=== PATIENT | male | born 1990 | race Caucasian/White ===

== ENCOUNTER → 2022-02-17 11:12 | Outpatient (REF) | payer BC, SELFPAY | LOC: ANHLAB 11:12 | PROVIDERS: PCP Family Medicine; Visit Provider Surgery Plastic and Reconstructive Surgery | DX: R22.9 Localized swelling, mass and lump, unspecified (principal) | CPT/HCPCS: 88304 ==

== ENCOUNTER 2023-03-27 10:32 | Outpatient (CLI) | payer BC, SELFPAY ==
--- NOTE | ~2023-03-27 | MR_ITS ---
MRI of the right knee Clinical history: Pain Technique: Coronal proton density and proton density-weighted images, sagittal proton-density and T2 fat-sat images, and axial proton-density fat-saturated images were acquired. Findings: Anterior and posterior cruciate ligaments are intact. Medial collateral ligament and the la teral collateral ligament complex are intact. Popliteus tendon is intact. There is a bucket-handle tear of the medial meniscus, with flipped bucket-handle fragment into the in tercondylar notch. No lateral meniscal tear evident. There is amorphous marrow edema throughout the medial tibial plateau region, likely reactive in natur e. No definite subchondral insufficiency fracture identified. Articular cartilage is well preserved i n the medial lateral compartments, and along the femoral trochlea. There is grade 4 chondral fissure along the medial patellar facet. Extensor mechanism is intact. Small joint effusion present. No Alfredo's cyst. Impression: Bucket-handle tear of the medial meniscus, as detailed above. Extensive marrow edema in the medial tibial plateau is likely reactive, or possibly bone contusion. N o definite subchondral insufficiency fracture seen. Grade 4 chondral fissure at the medial patellar facet. Reviewed, dictated and finalized at location . Impression: Bucket-handle tear of the medial meniscus, as detailed above. Extensive marrow edema in the medial tibial plateau is likely reactive, or poss ibly bone contusion. No definite subchondral insufficiency fracture seen. Grade 4 chondral fissure at the medial patellar facet.
== END 2023-03-27 10:33 | disposition home or self-care (01) ==
PROVIDERS: PCP Family Medicine; Visit Provider Orthopaedic Surgery
DX: S83.211A Bucket-handle tear of medial meniscus, current injury, right knee, initial encounter (principal); X58.XXXA Exposure to other specified factors, initial encounter
CPT/HCPCS: 73721

== ENCOUNTER 2023-05-22 02:08 | Day surgery (SDC) | payer BC, SELFPAY ==
[2023-05-11 12:12] VITALS: BMI 30.7
--- NOTE | 2023-05-11 12:16 | PC.NURSE ---
Addendum entered by Kezia Coley RN 05/11/23 12:26: NO NICOTINE POUCH MORNING OF SURGERY. Original Note: Report to the Outpatient Waiting Room, entrance under the green pavilion located off [facility], at time 7:30 on date 05/22/23. Planned Procedure Time: 9:30. Time changes happen often and if your time is changed the preop area will call you the afternoon before. - You and your visitor will be asked to self-screen and do not enter if you have any COVID symptoms. - A mask is optional within the hospital at this time. Patients may have clear liquids (water, carbonated beverages, clear teas, apple juice) until 3 hours prior to surgery (6:30) with a maximum of 20 ounces. - No food from midnight until time of surgery Take the following medications with a SIP of water the morning of surgery: NONE DO NOT STOP ANY OF YOUR OTHER PRESCRIPTION MEDICATIONS PRIOR TO SURGERY ?EXCEPT THE FOLLOWING Medications to discontinue per physician: N/A Date to take last dose: N/A Please no make-up, nail luxembourgish, hairspray, perfume, deodorant, or body powder the day of surgery. No jewelry (including any body piercings) or valuables the day of surgery, leave them at home. Please take a shower or bath the night before, or the morning of, surgery with an antibacterial soap. Wear comfortable, loose fitting clothing. - Jewelry must be removed prior to entering the operating room. Rings and piercings that are not removed may be cut off. - The hospital will not accept responsibility for valuables. - Please leave all valuables, including medications, at home the day of surgery. If you are going home after surgery, a licensed cart driver must drive you home. - NO public transportation without another adult if you receive anesthesia. - We recommend that an adult stay with you for 24 hours following discharge. - We also recommend that you do not drive, make important decision, drink alcoholic beverages, or take any drugs that were not prescribed by your health care provider for at least 24 hours after your discharge time. Follow any additional instructions given to you from your surgeon. If you or anyone in your household have experienced Covid symptoms in the past week, please notify your surgeon or the nurse liaison at the phone number below for possible testing. Telephone instructions given to PT - JAQUAN MARTINES and asked if any additional questions and then verbalized understanding. Patient advised to call surgeon office or pre surgery nurse liaison [phone] if any additional questions.
--- NOTE | 2023-05-12 08:41 | PC.NURSE ---
CRUTCH TRAINING COMPLETED. PT VERBALLY & PHYSICALLY DEMONSTRATES UNDERSTANDING. WRITTEN INSTRUCTIONS GIVEN.
[2023-05-22] VITALS (11 sets, daily range): BP systolic 94–149; BP diastolic 55–88; PULSE 43–81; RESP 12–20; TEMP 36.2–36.3; O2SAT 98–100
--- NOTE | 2023-05-22 08:16 | P.PNAN_ITS ---
Anes - Initial Pre Proc Eval Procedure: Operation Date: 05/22/23 09:30 Proposed Procedures p Right Knee Arthroscopy with Meniscectomy - Phi Marti MD Date/Time: 05/22/23 08:16 Surgeon: Phi Marti MD Pre Op Diagnosis: right knee medial meniscal tear Patient Data Age: 33 Gender: M Height: 1.93 m Weight: 114.75 kg Allergies Allergy/AdvReac Type Severity Reaction Status Date / Time No Known Allergies Allergy Verified 05/17/23 15:00 Home Medications Medication Instructions Recorded Confirmed Type cetirizine 10 mg tablet (Zyrtec) 10 mg PO DAILY PRN allergy 01/22/21 05/17/23 Rx symptoms #90 tabs omeprazole 20 mg capsule,delayed See Rx Instructions .Route 01/24/23 05/17/23 Rx release .COMPLEX #90 caps Patient hx anesthesia problems: none Family hx anesthesia problems: none Results Review: All pre-operative results and documents have been reviewed as part of the pre- operative evaluation. [facility] Past Medical History Medical History BMI 32.0-32.9,adult BMI 33.0-33.9,adult Dietary counseling and surveillance (05/29/19) Heart burn Screening for lipid disorders Skin lesion of back Tear of medial meniscus of right knee Surgical History Surgical History No history of previous surgery Family History Family History Father Hypertension Mother No problems noted. Sibling No problems noted. Grandparent Cancer Diabetes mellitus Other Melanoma Social History Social History Smoking status: Never smoker Tobacco type: smokeless tobacco Smokeless tobacco user: snus Second hand tobacco smoke exposure: Yes Additional smoking assessment comments: USES NICOTINE POUCH Alcohol intake: current Drinks per week: 6 Substance use: never Substance use type: does not use Lack of Transportation: No Lack of Food: Never True Current Housing: I Have Housing Concerned About Future Housing: No Difficulty Paying Gas/Electric Bills: No Difficulty Paying for Meds: No Currently Unemployed: YES Education: High School Diploma/GED Difficulty w/ Childcare or Family Care: No Living arrangements: with family Occupation/Education: occupation 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 Informed Consent: The patient's anesthetic plan and its attendant risks and benefits were dis cussed with the patient/family/POA. Questions were solicited and answers provided to the satisfaction of the patient/family/POA.
[2023-05-22] MEDS: LACTATED RINGERS 1,000 ML 30 ML IV CONT ×2 (08:20→10:35)
[2023-05-22] MEDS: KETOROLAC 15 MG/ML VIAL (*BKC) IV PUSH (08:20)
[2023-05-22] MEDS: ACETAMINOPHEN 500 MG TABLET 1000 MG PO (08:20)
--- NOTE | 2023-05-22 08:33 | WPDHPUPDATE1 ---
History and Physical Update Update Date/Time: 05/22/23 08:33 History and Physical has been reviewed, including an updated exam of the patient. There are NO changes in the patient's condition. Risks, benefits, and alternatives have been discussed and questions answered. Patient agrees to proceed with procedure.
[2023-05-22] MEDS: ceFAZolin 2 GM/D5W 50 ML 2 GM/50 ML BAG IVPB (09:04)
[2023-05-22] MEDS: LIDOCAINE HCL 1% LOCAL INJ 10 ML VIAL 20 ML INFILTRATE (09:24)
--- NOTE | 2023-05-22 10:40 | P.OP_ITS ---
Procedure Note - Detailed Date of Procedure 05/22/23 Pre-op Diagnosis right knee medial meniscal tear; symptomatic focal synovitis Post-op Diagnosis Same Procedure Performed Right knee arthroscopy. Partial medial meniscectomy. Partial synovectomy. Surgeon Phi Marti MD Resort Desk Clerk Jason Cardoso Anesthesia General Description of Procedure The patient was identified and proper site identified and he was taken to the operating room, transferred to the OR table placing him supine taking care to pad the torso and extremities. After general anesthetic induction and intubation, a nonsterile tourniquet was placed high on the right thigh but was not inflated. The right lower extremity was positioned, prepped and draped in usual sterile fashion. 10 cc of 1% lidocaine was injected into the subcutaneous tissue in the area of the portals at start of the procedure, and an additional 1 0 at the end. The portals were established and the arthroscopy was carried out. There was cartilage debris within the knee. This was flushed out. Articular cartilage anteriorly laterally was in good shape. Lateral meniscus was intact. Medial meniscus was displaced into the notch and although it was reducible it was grossly unstable. The pseudo meniscus had already formed at the base of the original meniscal tear. The medial meniscus was resected at the posterior and anterior horn and then removed through an accessory anterior portal. The meniscal stumps were gently debrided with the shaver. Attention was then turned to the clunk in the anterior portion of the knee. This was noted to be a thickened area synovium and scar tissue. This was debrided with the shaver. Arthrocare Wand was used extensively for intra-articular hemostasis. The knee was flushed with a copious amount of arthroscopic fluid and equipment was removed. Portals were closed with three O nylon suture and a sterile dressing was applied. He tolerated the procedure well, was awakened, extubated and taken to recovery area in stable condition. There were no known intraoperative complications. Estimated blood loss was negligible; he received perioperative antibiotics. Estimated Blood Loss 15 Tourniquet Time 0 Drains No Packing No Pathology None sent Complications No immediate complications Condition Stable Disposition PACU [facility] Billing Surgery - Charge Forward: Surgery Billing ([id number]; [id number])
[2023-05-22] MEDS: fentaNYL CITRATE INJ (*CRX) 100 MCG/2 ML VIAL 25 MCG IV PUSH ×4 (10:53→11:13)
[2023-05-22] MEDS: ONDANSETRON INJ 4 MG/2 ML VIAL IV PUSH (12:04)
[2023-05-22] MEDS: SCOPOLAMINE 1.5 MG PATCH TRANSDERM (12:30)
[2023-05-22] MEDS: diphenhydrAMINE HCl INJ 50 MG/ML VIAL 25 MG IV PUSH (12:30)
== END 2023-05-22 13:25 | disposition home or self-care (01) ==
PROVIDERS: PCP Family Medicine; Visit Provider Orthopaedic Surgery
PROC: (CPT 29870; principal; 2023-05-22 09:30)
DX: S83.241A Other tear of medial meniscus, current injury, right knee, initial encounter (principal); M65.861 Other synovitis and tenosynovitis, right lower leg; X50.0XXA Overexertion from strenuous movement or load, initial encounter
CPT/HCPCS: 29881; A9270; J0690; J1100; J1200; J1885; J2250; J2405; J2704; J3010; J7120

== ENCOUNTER 2023-05-24 14:46 | Outpatient (RCR) | payer BC, SELFPAY ==
--- NOTE | 2023-05-24 16:00 | OPREHPOC ---
Outpatient Therapy Plan of Care This is a Multidisciplinary Plan of Care that may contain components documented by all disciplines (PT, OT, and ST.) PT Problem 1 PT Problem #1 Knowledge Deficit PT Goal 1 Goal 1* indep with HEP PT Problem 2 PT Problem #2 Pain PT Goal 1 Goal 1* no pain in R knee with activity PT Problem 3 PT Problem #3 Impaired Range of Motion PT Goal 1 Goal 1* R knee active flexion in sitting 120' PT Problem 4 PT Problem #4 Impaired Strength PT Goal 1 Goal 1* pt report he has returned to bicycling outdoors 3 miles
--- NOTE | 2023-05-24 16:00 | PTOPEVAL1 ---
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 Prior to surgery, he was active and rode his bicycle for fitness. He has not used the crutches for the past day. With the evaluation: his R knee active ROM in sitting is 0-110'; has slight edema over knee; is able to single leg stand for 30 seconds with good stability and perform standing theraband exercises with good stability and did not cause pain; good gait pattern. Gerald was issued a home exercise program and educated on a gradual increase in activity-- walking and riding his stationary bicycle, monitoring pain and edema of his knee. He is motivated and is going to continue with this at home. If he has any further issues or needs, he will call for additional PT apointments. Plan of Care Interventions Hot Pack/Cold Pack,Manual Therapy,Neuro Re- education,Patient Education,Therapeutic Activities,Therapeutic Exercise,Other Other Interventions taping PT Services Indicated Yes Treatment Frequency and 0-2x/wk for 4 weeks, he is to call if any further Duration therapy is needed These treatments will address the objective and functional deficits as defined above. The patient will be advanced safely and appropriately in order for the patient to progress towards his/her prior level of function. Additional exercises will be introduced and as well as a comprehe
--- NOTE | 2023-07-04 11:22 | PTOPDC ---
Assessment and note entered by Noreen Dickerson, PT Evaluation Information Assessment Status Discharge - Pt Not Present Diagnosis s/p R knee arthroscopy Onset 05-22-23 Assessment PT Clinical Summary PHYSICAL THERAPY DISCHARGE Gerald received the PT evaluation on 05-24-23 and was instructed on HEP. He did not call for any further treatment after that appointment. Discharge PT services. The goals were not addressed. Plan of Care PT Services Indicated No
== END 2023-07-04 12:36 | disposition home or self-care (01) ==
LOC: ANHPT 14:46
PROVIDERS: PCP Family Medicine; Visit Provider Orthopaedic Surgery
DX: Z48.89 Encounter for other specified surgical aftercare (principal); Z98.890 Other specified postprocedural states
CPT/HCPCS: 97110; 97161